=== PATIENT | male | born 1990 | race Caucasian/White ===

== ENCOUNTER 2023-04-11 12:25 | Emergency (ER) | payer SELFPAY ==
[~2023-04-11] VITALS: Ht 167.6 cm; Wt 75.0 kg
[2023-04-11 12:34] VITALS: O2SAT 96
[2023-04-11] MEDS ORDERED: ONDANSETRON HCL 4MG/2ML INJ IV STA (12:42)
[2023-04-11 12:53] VITALS: BP 147/83; PULSE 75; RESP 14; TEMP 98.2
[2023-04-11 13:07] LABS: BASOPHILS % 0.8 % (0.0-2.0); EOSINOPHILS % 0.9 % (0.0-5.0); HEMATOCRIT. 43.8 % (42.0-52.0); HEMOGLOBIN. 14.7 g/dL (14.0-18.0); LYMPHOCYTES % 24.3 % (20.0-50.0); MEAN CORPUSCULAR HEMOGLOBIN 27.9 pg (28.0-32.0); MEAN CORPUSCULAR VOLUME 83.2 fL (80.0-94.0); MEAN PLATELET VOLUME 9.2 fl (7.4-10.4); MONOCYTES % 9.1 % (2.0-8.0); NEUTROPHILS % 64.9 % (40.0-76.0); PLATELET 185 x1000/uL (130-400); RED BLOOD CELL COUNT 5.26 mill/uL (4.7-6.1); RED CELL DISTRIBUTION WIDTH 15.7 % (11.6-14.6)
[2023-04-11 13:20] LABS: CHLORIDE 101 mEq/L (98-107)
[2023-04-11 13:31] LABS: D-DIMER < 0.19 mg/L FEU (<0.50); PROTHROMBIN TIME 10.7 sec (9.6-11.0)
[2023-04-11] MEDS ORDERED: TOPUD PO (14:24)
== END 2023-04-11 15:38 | disposition home or self-care (01) ==
LOC: ER 12:44
DX: R10.9 Unspecified abdominal pain (principal)
CPT/HCPCS: 80053; 83880; 83690; 85025; 85379; 85610; 84484; 36415; 71045; 96374; 99284; J2405; Z7610